=== PATIENT | male | born 1985 | race Caucasian/White ===

== ENCOUNTER 2017-09-17 23:19 | Emergency (ER) | payer OTHER ==
[~2017-09-17] VITALS: Ht 185.4 cm; Wt 92.3 kg
[2017-09-17 23:26] VITALS: BP 149/93
--- NOTE | 2017-09-17 23:30 | NUR ---
Patient to bed 08.
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
[2017-09-17] MEDS ORDERED: IBUPROFEN 800 MG TAB PO ONE (23:45)
[2017-09-18 00:04] VITALS: BP 128/76
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
== END 2017-09-18 00:04 | disposition home or self-care (01) ==
LOC: MED 23:19
DX: B08.5 Enteroviral vesicular pharyngitis (principal)
CPT/HCPCS: 99283

== ENCOUNTER 2020-07-26 00:05 | Emergency (ER) | payer MEDICAID, OTHER ==
[~2020-07-26] VITALS: Ht 182.9 cm; Wt 81.4 kg
[2020-07-26 00:10] VITALS: BP 129/85
--- NOTE | 2020-07-26 00:20 | NUR ---
ambulated to bed 12 with steady gait.
--- NOTE | 2020-07-26 00:44 | NUR ---
[facility] contacted and report given regarding pt. States they will send out and officer to take pt statement but no ETA given.
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
--- NOTE | 2020-07-26 01:12 | NUR ---
[place] [employer] AT BEDSIDE
--- NOTE | 2020-07-26 01:29 | NUR ---
TELEPSYCH INITIATED PER DR. LAWRENCE
--- NOTE | 2020-07-26 01:33 | NUR ---
TELEPSYCH CANCELLED PER DR. LAWRENCE
--- NOTE | 2020-07-26 01:34 | NUR ---
PATIENT ELOPED FROM FACILITY. DISCHARGE INSTRUCTIONS NOT GIVEN TO PATIENT. DR. Paul NOTIFIED.
== END 2020-07-26 01:34 | disposition left against medical advice (07) ==
LOC: MED 00:05
DX: T76.21XA Adult sexual abuse, suspected, initial encounter (principal); F12.10 Cannabis abuse, uncomplicated
CPT/HCPCS: 99281